=== PATIENT | male | born 1950 | race Caucasian/White ===

== ENCOUNTER 2024-11-10 13:07 | Inpatient (IN) ==
[2024-11-10 13:55] LABS: Basophils # (Auto) 0.02 K/mcL (0.00-0.30); Basophils % (Auto) 0.1 % (0.0-2.0); Eosinophils # (Auto) 0.15 K/mcL (0.00-0.70); Eosinophils % (Auto) 1.1 % (0.0-7.0); Hematocrit 44.8 % (40.1-51.0); Hemoglobin 14.4 g/dL (13.7-17.5); Lymphocytes # (Auto) 1.73 K/mcL (1.50-4.80); Lymphocytes % (Auto) 12.4 % (15.5-49.0); Mean Cell Volume 100.4 fL (80.0-100.0); Mean Corpuscular HGB Conc 32.1 g/dL (31.0-36.0); Mean Platelet Volume 9.8 fL (8.8-12.5); Monocytes # (Auto) 1.33 K/mcL (0.10-0.90); Monocytes % (Auto) 9.5 % (1.0-12.0); Neutrophils % (Auto) 76.5 % (38.0-78.0); Platelet Count 166 K/mcL (140-440); RBC 4.46 M/mcL (4.63-6.08); Red Cell Distribution Width 14.4 % (11.5-14.5); WBC 13.9 K/mcL (4.5-11.0)
[2024-11-10 14:06] LABS: INR 2.5 (0.9-1.1); Prothrombin Time 28.9 sec (11.9-14.5)
[2024-11-10 14:12] LABS: ALT/SGPT 9 U/L (<40); AST/SGOT 14 U/L (<40); Albumin 3.5 gm/dL (3.2-5.2); Albumin/Globulin Ratio 1.4 (1.0-2.3); Alkaline Phosphatase 76 U/L (39-117); Bilirubin,Total 0.6 mg/dL (0.1-1.0); Blood Urea Nitrogen 14 mg/dL (8-23); Calcium 9.8 mg/dL (8.6-10.4); Carbon Dioxide 30 mmol/L (22-30); Chloride 104 mmol/L (96-108); Globulin 2.5 gm/dL (2.2-3.7); Glomerular Filtration Rate 45; Glucose 108 mg/dL (70-105); Sodium 139 mmol/L (133-145); Thyroid Stimulating Hormone 0.92 uIU/mL (0.27-5.01)
[2024-11-10 14:24] LABS: Free T4 (Free Thyroxine) 0.89 ng/dL (0.93-1.70)
[2024-11-10 17:28] LABS: Appearance,Urine Clear (Clear); Bacteria,Urine Few /hpf (0); Bilirubin,Urine Negative (Negative); Color,Urine Yellow; Glucose,Urine (UA) Negative (Negative); Ketones,Urine Negative (Negative); Leukocyte Esterase,Urine Trace /uL (Negative); Mucus,Urine Few /hpf; Nitrate,Urine Negative (Negative); PH,Urine 7.5 (5.0-9.0); Protein,Urine Negative (Negative); Specific Gravity,Urine 1.015 (1.000-1.035); Urine Blood Small ery/mcL (Negative); Urine RBC 2 /hpf (0-3); Urine Squamous Epithelial Cell 0 /hpf (0-4); Urine WBC 9 /hpf (0-4); Urobilinogen,Urine Normal
[2024-11-10] MEDS: cefTRIAXone 1 GM VIAL IV ONE (18:08)
[2024-11-10] MEDS: 0.9 % SODIUM CHLORIDE 1,000 ML IV ONE (18:38)
[2024-11-10] MEDS ORDERED: ACETAMINOPHEN 325 MG TABLET PO PRN (20:06)
[2024-11-10] MEDS ORDERED: IPRATROPIUM/ALBUTEROL 3 ML AMPUL.NEB NEB PRN (20:06)
[2024-11-10] MEDS ORDERED: HALOPERIDOL 5 MG TABLET PO PRN (20:06)
[2024-11-10] MEDS: SENNOSIDES 1 TABLET PO SCH (21:44)
[2024-11-10] MEDS: 0.9 % SODIUM CHLORIDE 1,000 ML IV SCH (21:44)
[2024-11-10] MEDS: DOCUSATE SODIUM 100 MG CAPSULE PO SCH (21:44)
[2024-11-10] MEDS: 0.9 % SODIUM CHLORIDE 10 ML SYRINGE IV SCH (21:48)
[2024-11-11] MEDS: traZODone HCL 50 MG TABLET PO PRN
[2024-11-11 07:02] LABS: ALT/SGPT 13 U/L (<40); AST/SGOT 19 U/L (<40); Albumin 3.3 gm/dL (3.2-5.2); Albumin/Globulin Ratio 1.5 (1.0-2.3); Alkaline Phosphatase 77 U/L (39-117); Bilirubin,Total 0.7 mg/dL (0.1-1.0); Blood Urea Nitrogen 16 mg/dL (8-23); Calcium 8.9 mg/dL (8.6-10.4); Carbon Dioxide 26 mmol/L (22-30); Chloride 108 mmol/L (96-108); Globulin 2.2 gm/dL (2.2-3.7); Glomerular Filtration Rate 53; Glucose 98 mg/dL (70-105); Sodium 144 mmol/L (133-145)
[2024-11-11 07:36] LABS: Basophils # (Auto) 0.02 K/mcL (0.00-0.30); Basophils % (Auto) 0.2 % (0.0-2.0); Eosinophils # (Auto) 0.19 K/mcL (0.00-0.70); Eosinophils % (Auto) 1.7 % (0.0-7.0); Hematocrit 40.4 % (40.1-51.0); Lymphocytes # (Auto) 1.62 K/mcL (1.50-4.80); Lymphocytes % (Auto) 14.6 % (15.5-49.0); Mean Cell Volume 100.5 fL (80.0-100.0); Mean Corpuscular HGB Conc 32.2 g/dL (31.0-36.0); Mean Platelet Volume 10.5 fL (8.8-12.5); Monocytes # (Auto) 1.08 K/mcL (0.10-0.90); Monocytes % (Auto) 9.7 % (1.0-12.0); Platelet Count 153 K/mcL (140-440); RBC 4.02 M/mcL (4.63-6.08); Red Cell Distribution Width 14.3 % (11.5-14.5); WBC 11.1 K/mcL (4.5-11.0)
[2024-11-11 07:53] LABS: INR 2.2 (0.9-1.1)
[2024-11-11] MEDS: cefTRIAXone 2 GM in DEXTROSE 5% IN WATER 50 ML IV SCH (08:54)
[2024-11-11] MEDS: CARVEDILOL 3.125 MG TABLET PO SCH (10:32)
[2024-11-11] MEDS: ONDANSETRON 4 MG/2 ML VIAL IV PRN (10:32)
[2024-11-11] MEDS: buPROPion 150 MG TAB.XL.24H PO SCH (10:32)
[2024-11-11] MEDS: ASCORBIC ACID 500 MG TABLET PO SCH (10:33)
[2024-11-11] MEDS: VENLAFAXINE 37.5 MG TAB.ER.24H PO SCH (10:33)
[2024-11-11] MEDS: predniSONE 5 MG TABLET PO SCH (10:33)
[2024-11-11] MEDS: CARBIDOPA/LEVODOPA 25/100 TABLET PO SCH ×2 (10:33→20:23)
[2024-11-11] MEDS: CALCIUM (OYSTER SHELL) 500 MG TABLET PO SCH (10:33)
[2024-11-11] MEDS: PREGABALIN 100 MG CAPSULE PO SCH (10:33)
[2024-11-11] MEDS: VITAMIN B COMPLEX 1 CAPSULE PO SCH (10:33)
[2024-11-11] MEDS: POTASSIUM CITRATE 10 MEQ TAB.XL.24H PO SCH (12:05)
[2024-11-11] MEDS: KETOROLAC TROMETHAMINE 1 GTT BOTTLE OU SCH (12:07)
[2024-11-11] MEDS: WARFARIN 2 MG TABLET PO SCH (14:01)
[2024-11-11] MEDS: VITAMIN D3 25 MCG TABLET PO SCH (20:24)
[2024-11-11] MEDS: NORTRIPTYLINE 25 MG CAPSULE PO SCH (20:24)
[2024-11-11] MEDS: CYANOCOBALAMIN (VITAMIN B-12) 2,500 MCG TAB.SUBL SL SCH (20:24)
[2024-11-11] MEDS: HYDROcodone/APAP 5/325MG TABLET PO PRN (20:25)
[2024-11-12 06:22] LABS: Basophils # (Auto) 0.02 K/mcL (0.00-0.30); Basophils % (Auto) 0.2 % (0.0-2.0); Eosinophils # (Auto) 0.34 K/mcL (0.00-0.70); Eosinophils % (Auto) 3.8 % (0.0-7.0); Hematocrit 41.5 % (40.1-51.0); Hemoglobin 13.3 g/dL (13.7-17.5); Lymphocytes # (Auto) 1.65 K/mcL (1.50-4.80); Lymphocytes % (Auto) 18.3 % (15.5-49.0); Mean Cell Volume 100.5 fL (80.0-100.0); Mean Platelet Volume 9.8 fL (8.8-12.5); Monocytes # (Auto) 0.71 K/mcL (0.10-0.90); Monocytes % (Auto) 7.9 % (1.0-12.0); Neutrophils % (Auto) 69.4 % (38.0-78.0); Platelet Count 169 K/mcL (140-440); RBC 4.13 M/mcL (4.63-6.08); Red Cell Distribution Width 14.1 % (11.5-14.5)
[2024-11-12 07:03] LABS: ALT/SGPT 13 U/L (<40); AST/SGOT 18 U/L (<40); Albumin 3.4 gm/dL (3.2-5.2); Albumin/Globulin Ratio 1.3 (1.0-2.3); Alkaline Phosphatase 67 U/L (39-117); Bilirubin,Total 0.4 mg/dL (0.1-1.0); Blood Urea Nitrogen 16 mg/dL (8-23); Calcium 8.8 mg/dL (8.6-10.4); Carbon Dioxide 24 mmol/L (22-30); Chloride 107 mmol/L (96-108); Globulin 2.6 gm/dL (2.2-3.7); Glomerular Filtration Rate 58; Glucose 92 mg/dL (70-105); Potassium 3.7 mmol/L (3.3-5.1); Sodium 141 mmol/L (133-145)
[2024-11-12 07:18] LABS: INR 2.3 (0.9-1.1); Prothrombin Time 27.2 sec (11.9-14.5)
[2024-11-12] MEDS ORDERED: WARFARIN 5 MG TABLET PO SCH (09:00)
[2024-11-12] MEDS ORDERED: WARFARIN 1 MG TABLET PO SCH (09:00)
[2024-11-12] MEDS: ATORVASTATIN 10 MG TABLET PO SCH (12:09)
[2024-11-13 06:24] LABS: Basophils # (Auto) 0.03 K/mcL (0.00-0.30); Basophils % (Auto) 0.5 % (0.0-2.0); Eosinophils # (Auto) 0.29 K/mcL (0.00-0.70); Eosinophils % (Auto) 4.9 % (0.0-7.0); Hematocrit 38.5 % (40.1-51.0); Hemoglobin 12.3 g/dL (13.7-17.5); Lymphocytes # (Auto) 1.54 K/mcL (1.50-4.80); Lymphocytes % (Auto) 26.1 % (15.5-49.0); Mean Cell Volume 101.6 fL (80.0-100.0); Mean Corpuscular HGB Conc 31.9 g/dL (31.0-36.0); Mean Platelet Volume 9.8 fL (8.8-12.5); Monocytes # (Auto) 0.54 K/mcL (0.10-0.90); Monocytes % (Auto) 9.1 % (1.0-12.0); Neutrophils % (Auto) 58.9 % (38.0-78.0); Platelet Count 165 K/mcL (140-440); RBC 3.79 M/mcL (4.63-6.08); Red Cell Distribution Width 14.2 % (11.5-14.5); WBC 5.9 K/mcL (4.5-11.0)
[2024-11-13 06:58] LABS: ALT/SGPT < 5 U/L (<40); AST/SGOT 13 U/L (<40); Albumin 3.1 gm/dL (3.2-5.2); Albumin/Globulin Ratio 1.5 (1.0-2.3); Alkaline Phosphatase 56 U/L (39-117); Bilirubin,Total 0.3 mg/dL (0.1-1.0); Blood Urea Nitrogen 15 mg/dL (8-23); Calcium 8.3 mg/dL (8.6-10.4); Carbon Dioxide 25 mmol/L (22-30); Chloride 109 mmol/L (96-108); Globulin 2.1 gm/dL (2.2-3.7); Glomerular Filtration Rate 73; Glucose 85 mg/dL (70-105); Sodium 140 mmol/L (133-145)
[2024-11-13 08:25] LABS: INR 3.4 (0.9-1.1); Prothrombin Time 37.4 sec (11.9-14.5)
[2024-11-14 05:59] LABS: Basophils # (Auto) 0.03 K/mcL (0.00-0.30); Basophils % (Auto) 0.5 % (0.0-2.0); Eosinophils # (Auto) 0.28 K/mcL (0.00-0.70); Eosinophils % (Auto) 4.5 % (0.0-7.0); Hemoglobin 12.9 g/dL (13.7-17.5); Lymphocytes # (Auto) 1.84 K/mcL (1.50-4.80); Lymphocytes % (Auto) 29.6 % (15.5-49.0); Mean Cell Volume 100.5 fL (80.0-100.0); Mean Corpuscular HGB Conc 32.3 g/dL (31.0-36.0); Mean Platelet Volume 9.5 fL (8.8-12.5); Monocytes # (Auto) 0.67 K/mcL (0.10-0.90); Monocytes % (Auto) 10.8 % (1.0-12.0); Neutrophils % (Auto) 53.8 % (38.0-78.0); Platelet Count 184 K/mcL (140-440); RBC 3.98 M/mcL (4.63-6.08); Red Cell Distribution Width 14.2 % (11.5-14.5); WBC 6.2 K/mcL (4.5-11.0)
[2024-11-14 06:18] LABS: INR 3.1 (0.9-1.1); Prothrombin Time 34.5 sec (11.9-14.5)
[2024-11-14 06:30] LABS: ALT/SGPT < 5 U/L (<40); AST/SGOT 12 U/L (<40); Albumin 3.3 gm/dL (3.2-5.2); Albumin/Globulin Ratio 1.6 (1.0-2.3); Alkaline Phosphatase 60 U/L (39-117); Bilirubin,Total 0.3 mg/dL (0.1-1.0); Blood Urea Nitrogen 15 mg/dL (8-23); Carbon Dioxide 26 mmol/L (22-30); Chloride 105 mmol/L (96-108); Globulin 2.1 gm/dL (2.2-3.7); Glomerular Filtration Rate 73; Glucose 81 mg/dL (70-105); Potassium 3.7 mmol/L (3.3-5.1); Sodium 140 mmol/L (133-145)
[2024-11-14 13:58] VITALS: O2SAT 95
[2024-11-14 14:17] VITALS: TEMP 98.6
== END 2024-11-14 14:33 | DRG 871 ==
LOC: ED 13:07 → MEDSUR 19:56
PROVIDERS: ADMIT Internal Medicine; ATTEND Student in an Organized Health Care Education/Training Program